=== PATIENT | male | born 1985 ===

== ENCOUNTER 2020-12-08 00:16 | Emergency (ER) | payer OTHER ==
[~2020-12-08] VITALS: Ht 185.4 cm; Wt 100.0 kg
[2020-12-08] MEDS ORDERED: ONDANSETRON 2MG/ML, 2ML IVPush ONE (00:30)
[2020-12-08] MEDS ORDERED: SODIUM CHLORIDE 0.9% 1,000ML IVBOLUS ONE (00:30)
[2020-12-08] MEDS ORDERED: DEXAMETHASONE 4 MG TABLET PO ONE (00:30)
[2020-12-08] MEDS ORDERED: DEXAMETHASONE 4 MG TABLET ONE (00:55)
[2020-12-08] MEDS ORDERED: ONDANSETRON 2MG/ML, 2ML ONE (00:55)
[2020-12-08 01:00] LABS: BASOPHILS % (AUTO) 0 % (0-1); EOSINOPHILS % (AUTO) 0 % (1-7); LYMPHOCYTES % (AUTO) 9 % (22-44); MEAN CORPUSCULAR HEMOGLOBIN 34.3 pg (27.5-34.5); MEAN CORPUSCULAR HGB CONC 34.7 g/dL (33.2-36.2); MEAN PLATELET VOLUME 7.4 fL (7.4-10.4); MONOCYTES % (AUTO) 12 % (2-9); NEUTROPHILS % (AUTO) 79 % (42-75); PLATELET COUNT 268 x10^3/uL (130-400); RED BLOOD COUNT 4.04 x10^6/uL (4.38-5.82); RED CELL DISTRIBUTION WIDTH 13.3 % (9.4-14.8)
[2020-12-08 01:01] LABS: MD NO
--- NOTE | 2020-12-08 01:06 | NUR ---
pt medicated per [facility]. vss. report to [facility]
[2020-12-08 01:10] LABS: ALBUMIN 3.5 g/dL (3.4-5.0); ANION GAP 10 mmol/L (5-15); CALCIUM 8.4 mg/dL (8.5-10.1); CHLORIDE 107 mmol/L (98-107); CREATININE 1.06 mg/dL (0.7-1.3)
--- NOTE | 2020-12-08 01:38 | NUR ---
PT SWABBED AND SWAB WALKED TO LAB. PT SLEEPING. VSS.
[2020-12-08 01:56] LABS: RAPID INFLUENZA A Negative (Negative); RAPID INFLUENZA B Negative (Negative)
--- NOTE | 2020-12-08 02:39 | NUR ---
PT TOLD UA IS NEEDED. PT GIVEN WATER. URINAL AT BEDSIDE
[2020-12-08 03:06] LABS: MICROSCOPIC NOT IND
[2020-12-08 03:56] VITALS: BP 128/76
--- NOTE | 2020-12-08 04:19 | NUR ---
Patient/Caregiver given discharge instructions and they have confirmed that they understand the instructions. Patient dressed and refused to leave. security called to assist
== END 2020-12-08 04:27 | disposition home or self-care (01) ==
LOC: ED 04:00
DX: J06.9 Acute upper respiratory infection, unspecified (principal); Z20.822 Contact with and (suspected) exposure to COVID-19; R30.0 Dysuria; R05 Cough; R11.2 Nausea with vomiting, unspecified; R00.0 Tachycardia, unspecified; R07.9 Chest pain, unspecified; F17.210 Nicotine dependence, cigarettes, uncomplicated
CPT/HCPCS: 36415; 71045; 80048; 81003; 82040; 85025; 87081; 87400; 87880; 93005; 96361; 96374; 99285; 99406; J2405; J7030; U0003; 87147